=== PATIENT | female | born 1990 | race Caucasian/White ===

== ENCOUNTER 2025-07-29 13:58 | Outpatient (CLI) | payer BC, SELFPAY ==
[2025-08-04 10:40] LABS: Pap Test Digital Imaging Done
[2025-08-06 05:06] LABS: HPV Source Cervix
== END 2025-07-29 13:59 | disposition home or self-care (01) ==
PROVIDERS: PCP Student in an Organized Health Care Education/Training Program; Visit Provider Registered Nurse
DX: Z12.4 Encounter for screening for malignant neoplasm of cervix (principal)
CPT/HCPCS: 87624; 87625; 88141; 88142; 88175